=== PATIENT | male | born 1950 | race Caucasian/White ===

== ENCOUNTER 2019-11-14 10:18 | Inpatient (IN) | payer MEDICARE, OTHER ==
[2019-11-14] MEDS ORDERED: SODIUM CHLORIDE 500 ML IV STA (11:16)
[2019-11-14] MEDS ORDERED: PANTOPRAZOLE SODIUM 40 MG VIAL IVPB ONE (11:16)
[2019-11-14] MEDS ORDERED: ONDANSETRON 4 MG/2 ML VIAL IVPUSH ONE (11:16)
[2019-11-14] MEDS ORDERED: chlordiazePOXIDE HCL 25 MG CAPSULE PO ONE (11:21)
[2019-11-14 11:39] LABS: BASO % 0.6 % (0-2.0); HEMATOCRIT 39.2 % (35.4-49); HEMOGLOBIN 13.8 GM/dL (11.7-16.9); LYMPH % 26.6 % (8-40); MCH 36.5 pg (25.7-33.7); MCHC 35.2 g/dl (32.0-35.9); MEAN CELL VOLUME 103.6 fl (80-96); MEAN PLT VOLUME 8.2 fl (7.5-11.1); MONO % 17.1 % (3.8-10.2); NEUT % 52.7 % (42.8-82.8); PLATELET COUNT 77 K/MM3 (134-434); RBC 3.78 M/mm3 (4.00-5.60); RDW 13.9 % (11.9-15.9); WHITE BLOOD COUNT 3.4 K/mm3 (4.0-10.0)
--- NOTE | 2019-11-14 11:40 | PDOC ---
Documentation entered by Andrew Womack SCRIBE, acting as scribe for Sheela Lam MD. Sheela Lam MD: This documentation has been prepared by the Shanta esteves Elijah, SCRIBE, under my direction and personally reviewed by me in its entirety. I confirm that the documentation accurately reflects all work, treatment, procedures, and medical decision making performed by me. History of Present Illness - General Chief Complaint: Diarrhea Stated Complaint: SENT BY DOC History Source: Patient Exam Limitations: No Limitations - History of Present Illness Initial Comments: 11/14/19 11:25 Patient is a 69 year old male with a significant pmh of ETOH abuse, arthritis and Tobacco Use who presents today with Diarrhea over the last month. Patient reports that he has watery stool and it has progressively been worsening. Pt states that he is having 1-2 bowel movements daily described as "clear water with whatever I ate in it." Denies BRBPR or melena. Pt states that has been taking Loperamide with good symptom control -- will have 1 bowel movement every other day when taking the medication. Pt has notably poor PO intake -- states that yesterday all he ate were "a few goldfish" and today he has had no solid intake. 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 Pt sent to the ER today by Dr. Cardona with a note to evaluate for "profuse watery diarrhea. " Patient denies recent travel, blood in stool, weight loss, LOC, SOB and Headaches. Allergies: Nka PCP: Dr. Cardona 11/14/19 11:29 Spoke w/ Dr. Zimmerman, coverage for Dr. Cardona. Per office visit documentation, Pt's roommate/landlord states that he needs to change the pt's bedsheets multiple times a day 2/2 diarrhea and that he is no longer able to care for the patient. Pt appears to be minimizing symptoms. --MD Carole Past History - Past Medical History Allergies/Adverse Reactions: Allergies Allergy/AdvReac Type Severity Reaction Status Date / Time No Known Allergies Allergy Verified 11/14/19 10:31 Home Medications: Ambulatory Orders Unobtainable 11/14/19 COPD: No Other medical history: GALLSTONES - Immunization History Immunization Up to Date: Yes - Psycho Social/Smoking Cessation Hx Smoking History: Current every day smoker Have you smoked in the past 12 months: Yes Number of Cigarettes Smoked Daily: 10 Information on smoking cessation initiated: No 'Breaking Loose' booklet given: 05/16/15 Hx Alcohol Use: Yes Drug/Substance Use Hx: No Review of Systems - Review of Systems Comments:: 11/14/19 11:25 GENERAL/CONSTITUTIONAL: No fever or chills. No weakness. HEAD, EYES, EARS, NOSE AND THROAT: No change in vision. No ear pain or discharge. No sore throat. CARDIOVASCULAR: No chest pain or shortness of breath. RESPIRATORY: No cough, wheezing, or hemoptysis. GASTROINTESTINAL:+Diarrhea No nausea, vomiting or constipation. GENITOURINARY: No dysuria, frequency, or change in urination. MUSCULOSKELETAL: No joint or muscle swelling or pain. No neck or back pain. SKIN: No rash NEUROLOGIC: No headache, vertigo, loss of consciousness, or change in strength/ sensation. ENDOCRINE: No increased thirst. No abnormal weight change. HEMATOLOGIC/LYMPHATIC: No anemia, easy bleeding, or history of blood clots. ALLERGIC/IMMUNOLOGIC: No hives or skin allergy. *Physical Exam - Vital Signs Last Vital Signs Temp Pulse Resp BP Pulse Ox 97.6 F 81 20 140/75 98 11/14/19 10:25 11/14/19 10:25 11/14/19 10:25 11/14/19 10:25 11/14/19 10:25 - Physical Exam 11/14/19 11:25 GENERAL: +Alcohol on Breath. +Resting Essential Tremor. Awake, alert, and fully oriented HEAD: No signs of trauma EYES: PERRLA, EOMI, sclera anicteric, conjunctiva clear ENT: Auricles normal inspection, hearing grossly normal, nares patent, oropharynx clear without exudates. Moist mucosa NECK: Normal ROM, supple, no lymphadenopathy, JVD, or masses LUNGS: +Crackles at the Bases HEART: Regular rate and rhythm, normal S1 and S2, no murmurs, rubs or gallops ABDOMEN: Soft, nontender, normoactive bowel sounds. No guarding, no rebound. No masses EXTREMITIES: + 2+ Pitting Edema. Normal range of motion. No clubbing or cyanosis. No cords, erythema, or tenderness NEUROLOGICAL: Cranial nerves II through XII grossly intact. Normal speech, normal gait SKIN: Warm, Dry, normal turgor, no rashes or lesions noted. ED Treatment Course - LABORATORY CBC & Chemistry Diagram: 11/14/19 11:20 11/14/19 11:20 Medical Decision Making - Medical Decision Making 11/14/19 11:39 69yoM w/ etoh abuse, cig abuse presnets for admission for evaluation of recurrent clear diarrhea and support system unable to care for pt anymore. Pt is minimizing symptoms. - labs - ekg - stool studies - cxr - ivf - admit Dr. Zimmerman/Brendan. Discharge - Discharge Information Problems reviewed: Yes Clinical Impression/Diagnosis: Alcohol dependence - Admission Yes - Follow up/Referral - Patient Discharge Instructions - Post Discharge Activity
[2019-11-14] MEDS ORDERED: ONDANSETRON 4 MG/2 ML VIAL ONE (11:47)
[2019-11-14] MEDS ORDERED: chlordiazePOXIDE HCL 25 MG CAPSULE ONE (11:47)
[2019-11-14] MEDS ORDERED: PANTOPRAZOLE 40 MG TABLET ONE (11:47)
[2019-11-14 11:52] LABS: INR 1.07 (0.83-1.09); PROTHROMBIN TIME (PATIENT) 12.6 SEC (9.7-13.0)
[2019-11-14 12:17] LABS: ALBUMIN 3.5 g/dl (3.4-5.0); ALK PHOS 65 U/L (45-117); ANION GAP 8 MMOL/L (8-16); BILIRUBIN,TOTAL 0.7 mg/dL (0.2-1); CALCIUM 8.6 mg/dL (8.5-10.1); CHLORIDE 97 mmol/L (98-107); CO2 28 mmol/L (21-32); CREATININE 0.6 mg/dL (0.55-1.3); GLUCOSE,RANDOM 85 mg/dL (74-106); LIPASE 46 U/L (73-393); MAGNESIUM 1.8 mg/dL (1.8-2.4); PHOSPHOROUS 3.8 mg/dL (2.5-4.9); SGOT/AST 66 U/L (15-37); SGPT/ALT 29 U/L (13-61); SODIUM 133 mmol/L (136-145); TOT PROT 7.4 g/dl (6.4-8.2)
--- NOTE | 2019-11-14 12:35 | EKG ---
Test Reason : Blood Pressure : / mmHG Vent. Rate : 067 BPM Atrial Rate : 067 BPM P-R Int : 198 ms QRS Dur : 080 ms QT Int : 424 ms P-R-T Axes : 003 011 024 degrees QTc Int : 448 ms POOR DATA QUALITY, INTERPRETATION MAY BE ADVERSELY AFFECTED NORMAL SINUS RHYTHM NORMAL ECG WHEN COMPARED WITH ECG OF 05-OCT-2018 09:34, NO SIGNIFICANT CHANGE WAS FOUND Confirmed by MD TANIA, NALDO ([id number]) on 11/14/2019 12:34:58 PM Referred By: Confirmed By:NALDO MARIN MD
[2019-11-14 12:41] LABS: BLOOD UREA NITROGEN 1.9 mg/dL (7-18)
[2019-11-14] MEDS ORDERED: POTASSIUM CHLORIDE TABS 20 MEQ TABLET.ER (FP) PO ONE (15:00)
[2019-11-14] MEDS ORDERED: chlordiazePOXIDE HCL 10 MG CAPSULE PO PRN (15:01)
[2019-11-14] MEDS: chlordiazePOXIDE HCL 25 MG CAPSULE PO SCH ×2 (15:14→21:20)
[2019-11-14 15:31] VITALS: BMI 21.1
[2019-11-14] MEDS ORDERED: FOLIC ACID INJECTION - 1 MG, THIAMINE HCL 100 MG, MULTIVIT INJECTION ADULT 10 ML in SOD... IVPB ONE (16:00)
[2019-11-14] MEDS: SODIUM CHLORIDE 0.9%/KCL 20 MEQ/1,000 ML INFUS.BAG IV SCH (16:34)
[2019-11-14] MEDS ORDERED: PT OWN MED DRAWER 7, Y5N ONE (20:42)
[2019-11-15] MEDS: SODIUM CHLORIDE 0.9%/KCL 20 MEQ/1,000 ML INFUS.BAG IV SCH ×2 (03:22→15:01)
[2019-11-15] MEDS: LOPERAMIDE HCL 2 MG CAPSULE PO PRN (03:31)
[2019-11-15] MEDS: chlordiazePOXIDE HCL 25 MG CAPSULE PO SCH ×3 (03:59→21:26)
[2019-11-15 07:23] LABS: ALBUMIN 2.7 g/dl (3.4-5.0); BILIRUBIN,TOTAL 1.1 mg/dL (0.2-1); BLOOD UREA NITROGEN 3.8 mg/dL (7-18); CALCIUM 7.5 mg/dL (8.5-10.1); CREATININE 0.6 mg/dL (0.55-1.3); TOT PROT 5.5 g/dl (6.4-8.2)
[2019-11-15 07:26] LABS: BASO % 0.5 % (0-2.0); HEMATOCRIT 33.9 % (35.4-49); HEMOGLOBIN 11.8 GM/dL (11.7-16.9); LYMPH % 19.9 % (8-40); MCH 36.3 pg (25.7-33.7); MCHC 34.7 g/dl (32.0-35.9); MEAN CELL VOLUME 104.7 fl (80-96); MEAN PLT VOLUME 7.7 fl (7.5-11.1); MONO % 15.5 % (3.8-10.2); NEUT % 62.1 % (42.8-82.8); PLATELET COUNT 59 K/MM3 (134-434); RBC 3.24 M/mm3 (4.00-5.60); RDW 13.5 % (11.9-15.9)
--- NOTE | 2019-11-15 08:08 | CON.GI ---
Consult Consult Specialty:: GI Referred by:: Dr Magalie Aiken Reason for Consultation:: Diarrhea - History of Present Illness History of Present Illness: Patient is a 69 y/o male with past medical history of Alcohol Abuse, Arthritis, and Nicotene dependence. Consult was placed for diarrhea. Patient states having non-bloody diarrhea with chills and lower abdominal cramping two times a day for about 2 months. He denies recent travel, antibiotic use, fevers, or night awakening. He says diarrhea is exacerbated after eating and because of this has had poor appetite since diarrhea has started. He says he has lost around 15 lbs in 2 months. Denies nausea, vomiting, rectal bleeding, melena. Patient does have chronic alcohol abuse and drinks 6 beers a day for the past 40 years. - History Source History Provided By: Patient Limitations to Obtaining History: No Limitations - Past Surgical History Past Surgical History: Yes: Hernia Repair - Alcohol/Substance Use Hx Alcohol Use: Yes (40 yrs) Number of Drinks Daily: 6 (beers per day) - Smoking History Smoking history: Current every day smoker Have you smoked in the past 12 months: Yes Aproximately how many cigarettes per day: 10 - Social History History of Recent Travel: No Home Medications - Allergies Allergies/Adverse Reactions: Allergies Allergy/AdvReac Type Severity Reaction Status Date / Time No Known Allergies Allergy Verified 11/14/19 10:31 - Home Medications Home Medications: Ambulatory Orders Unobtainable 11/14/19 Review of Systems - Review of Systems Constitutional: reports: No Symptoms Eyes: reports: No Symptoms HENT: reports: No Symptoms Neck: reports: No Symptoms Cardiovascular: reports: No Symptoms Respiratory: reports: No Symptoms Gastrointestinal: reports: Abdominal Pain, Diarrhea Genitourinary: reports: No Symptoms Breasts: reports: No Symptoms Reported Musculoskeletal: reports: No Symptoms Integumentary: reports: No Symptoms Neurological: reports: No Symptoms Endocrine: reports: No Symptoms Hematology/Lymphatic: reports: No Symptoms Psychiatric: reports: No Symptoms Physical Exam-GI Vital Signs: Vital Signs Temperature 98.0 F 11/15/19 02:00 Pulse Rate 78 11/15/19 02:00 Respiratory Rate 20 11/15/19 02:00 Blood Pressure 125/56 L 11/15/19 02:00 O2 Sat by Pulse Oximetry (%) 96 11/14/19 21:00 Constitutional: Yes: No Distress, Calm, Poor Hygeine Eyes: Yes: Conjunctiva Clear HENT: Yes: Atraumatic Cardiovascular: Yes: Regular Rate and Rhythm Respiratory: Yes: Regular, Diminished Gastrointestinal Inspection: Yes: WNL. No: Ascites, Distention, Hernia, Scars, Other ...Auscultate: Yes: Normoactive Bowel Sounds. No: Hyperactive Bowel Sounds, Hypoactive Bowel Sounds, No Bowel Sounds, Other ...Palpate: Yes: Soft. No: Firm/Rigid, Guarding, Hepatomegaly, Mass, Pulsatile Mass, Splenomegaly, Tenderness, Tenderness, Epigastium, Tenderness, Rebound, Other ...Percussion: Yes: Tympanitic. No: Dullness, Fluid Wave, Other Neurological: Yes: Alert, Oriented Psychiatric: Yes: Alert, Oriented Labs: CBC, BMP 11/15/19 06:35 11/15/19 06:00 INR, PTT INR 1.07 (0.83-1.09) 11/14/19 11:20 Active Medications Generic Name Dose Route Start Last Admin Trade Name Freq PRN Reason Stop Dose Admin Chlordiazepoxide HCl 10 mg 11/17/19 00:00 Librium - PO 11/17/19 23:59 Q12H PRN Signs/symptoms of Withdrawal Chlordiazepoxide HCl 10 mg 11/14/19 15:01 Librium - PO 11/16/19 23:59 Q8H PRN Signs/symptoms of Withdrawal Chlordiazepoxide HCl 25 mg 11/14/19 13:00 11/15/19 03:59 Librium - PO 11/15/19 21:01 25 mg Q8H GERALDO Administration Chlordiazepoxide HCl 15 mg 11/16/19 05:00 Librium - PO 11/16/19 21:01 Q8H GERALDO Chlordiazepoxide HCl 10 mg 11/17/19 05:00 Librium - PO 11/17/19 21:01 Q8H GERALDO Chlordiazepoxide HCl 10 mg 11/18/19 05:00 Librium - PO 11/18/19 05:01 ONCE ONE Potassium Chloride/Sodium Chloride 20 meq in 1,000 mls @ 100 mls/hr 11/14/19 15:00 11/15/19 03:22 Ns+20 Meq Kcl - IV 100 mls/hr ASDIR GERALDO Administration Loperamide HCl 2 mg 11/14/19 16:04 11/15/19 03:31 Imodium - PO 2 mg Q8H PRN Administration DIARRHEA Thiamine HCl 200 mg 11/15/19 10:00 Vitamin B1 Injection - IVPB DAILY [facility] Problem List - Problems (1) Diarrhea Code(s): R19.7 - DIARRHEA, UNSPECIFIED
[2019-11-15] MEDS: THIAMINE HCL 200 MG/2 ML VIAL IVPB SCH (10:27)
[2019-11-15] MEDS ORDERED: POTASSIUM CHLORIDE TABS 20 MEQ TABLET.ER (FP) PO ONE (11:05)
[2019-11-15] MEDS ORDERED: LORazepam 2 MG/ML SDV VIAL IVPUSH PRN (11:45)
--- NOTE | 2019-11-15 11:52 | HP ---
Admitting History and Physical - Primary Care Physician PCP: Juliann Cardona - Admission Chief Complaint: chronic diarrhea History of Present Illness: ER Notes History of Present Illness - General Chief Complaint: Diarrhea Stated Complaint: SENT BY DOC History Source: Patient Exam Limitations: No Limitations - History of Present Illness Initial Comments: 11/14/19 11:25 Patient is a 69 year old male with a significant pmh of ETOH abuse, arthritis and Tobacco Use who presents today with Diarrhea over the last month. Patient reports that he has watery stool and it has progressively been worsening. Pt states that he is having 1-2 bowel movements daily described as "clear water with whatever I ate in it." Denies BRBPR or melena. Pt states that has been taking Loperamide with good symptom control -- will have 1 bowel movement every other day when taking the medication. Pt has notably poor PO intake -- states that yesterday all he ate were "a few goldfish" and today he has had no solid intake. 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 Pt sent to the ER today by Dr. Cardona with a note to evaluate for "profuse watery diarrhea." Patient denies recent travel, blood in stool, weight loss, LOC, SOB and Headaches. Allergies: Nka PCP: Dr. Cardona 11/14/19 11:29 Spoke w/ Dr. Zimmerman, coverage for Dr. Cardona. Per office visit documentation, Pt's roommate/landlord states that he needs to change the pt's bedsheets multiple times a day 2/2 diarrhea and that he is no longer able to care for the patient. Pt appears to be minimizing symptoms. --MD Carole Pt examined on the floors He lives with a friend--- lives on social security-- has been a chronic alcoholic - 6 pack beer/day >20 years and a chronic smoker-- 1/2 PPD Poor po intake per friend , drinks only alcohol has been having diarrhea for about 4 months--about 1 -2 loose stools daily - he claims he "tries " to eat 2 meals a day Has occasional abd pain no chills has lost 15 lbs in past 3 months Pt is notably weak with tremors was previously in [facility] for detox History Source: Patient, Friend, Transfer Record Limitations to Obtaining History: No Limitations - Past Medical History Pulmonary: Yes: Other (chronic smoker) Additional Past Medical History: chronic alcoholic - Past Surgical History Past Surgical History: Yes: Hernia Repair - Smoking History Smoking history: Current every day smoker Have you smoked in the past 12 months: Yes Aproximately how many cigarettes per day: 10 - Alcohol/Substance Use Hx Alcohol Use: Yes (40 yrs) Number of Drinks Daily: 6 (beers per day) - Social History History of Recent Travel: No Home Medications - Allergies Allergies/Adverse Reactions: Allergies Allergy/AdvReac Type Severity Reaction Status Date / Time No Known Allergies Allergy Verified 11/14/19 10:31 - Home Medications Home Medications: Ambulatory Orders Unobtainable 11/14/19 Review of Systems - Review of Systems Constitutional: reports: Loss of Appetite, Weakness. denies: Chills Physical Examination Vital Signs: Vital Signs Temperature 98 F 11/15/19 09:26 Pulse Rate 86 11/15/19 09:26 Respiratory Rate 18 11/15/19 09:26 Blood Pressure 143/84 11/15/19 09:26 O2 Sat by Pulse Oximetry (%) 96 11/15/19 09:00 Constitutional: Yes: No Distress, Calm Cardiovascular: Yes: Regular Rate and Rhythm Respiratory: Yes: Diminished Gastrointestinal: Yes: Normal Bowel Sounds, Soft. No: Tenderness Edema: No Neurological: Yes: Alert, Oriented, Tremors Labs: CBC, BMP 11/15/19 06:35 11/15/19 06:00 Imaging - Results EKG: Image Reviewed (NSR) Problem List - Problems (1) Pancytopenia Code(s): D61.818 - OTHER PANCYTOPENIA (2) Alcohol dependence Code(s): F10.20 - ALCOHOL DEPENDENCE, UNCOMPLICATED (3) Diarrhea Code(s): R19.7 - DIARRHEA, UNSPECIFIED Assessment/Plan PLAN diarrhea likely nutritional deficiency due to chronic alcoholism Replace lytes started on Librium Ativan as needed on Thiamine, folic acid , [facility] GI eval stool studies sent Detox eval Monitor CBC-- he is pancytopenic due to alcoholism check sono abdomen SCD for dvt prophylaxis-- can not use Heparin /lovenox due to thrombocytopenia
[2019-11-15] MEDS: FOLIC ACID 1 MG TABLET (FP) PO SCH (13:09)
[2019-11-15] MEDS: MULTIVIT-MINERALS ORAL LIQUID PO SCH (13:09)
[2019-11-15] MEDS: NICOTINE 14 MG/24 HOURS TOPICAL PATCH TD SCH (13:09)
[2019-11-15] MEDS: FAMOTIDINE 10 MG TABLET PO SCH (21:28)
[2019-11-16] MEDS: SODIUM CHLORIDE 0.9%/KCL 20 MEQ/1,000 ML INFUS.BAG IV SCH ×3 (00:16→15:22)
[2019-11-16] MEDS: chlordiazePOXIDE 5 MG CAPSULE PO SCH ×3 (05:21→21:08)
[2019-11-16 06:29] LABS: BASO % 0.5 % (0-2.0); EOS % 2.2 % (0-4.5); HEMATOCRIT 32.5 % (35.4-49); HEMOGLOBIN 11.6 GM/dL (11.7-16.9); LYMPH % 21.6 % (8-40); MCH 36.8 pg (25.7-33.7); MCHC 35.8 g/dl (32.0-35.9); MEAN CELL VOLUME 102.8 fl (80-96); MEAN PLT VOLUME 7.6 fl (7.5-11.1); MONO % 17.5 % (3.8-10.2); NEUT % 58.2 % (42.8-82.8); PLATELET COUNT 61 K/MM3 (134-434); RBC 3.16 M/mm3 (4.00-5.60); RDW 13.1 % (11.9-15.9); WHITE BLOOD COUNT 3.1 K/mm3 (4.0-10.0)
[2019-11-16 07:33] LABS: ALBUMIN 2.7 g/dl (3.4-5.0); CALCIUM 7.5 mg/dL (8.5-10.1); CREATININE 0.5 mg/dL (0.55-1.3); MAGNESIUM 1.3 mg/dL (1.8-2.4); POTASSIUM 3.4 mmol/L (3.5-5.1); TOT PROT 5.7 g/dl (6.4-8.2)
[2019-11-16] MEDS ORDERED: PT OWN MED DRAWER 7, Y5N ONE (09:57)
[2019-11-16] MEDS: NICOTINE 14 MG/24 HOURS TOPICAL PATCH TD SCH (09:59)
[2019-11-16] MEDS: THIAMINE HCL 200 MG/2 ML VIAL IVPB SCH (09:59)
[2019-11-16] MEDS: FAMOTIDINE 10 MG TABLET PO SCH ×2 (09:59→21:08)
[2019-11-16] MEDS: FOLIC ACID 1 MG TABLET (FP) PO SCH (09:59)
[2019-11-16] MEDS: MULTIVIT-MINERALS ORAL LIQUID PO SCH (10:00)
--- NOTE | 2019-11-16 11:48 | PN ---
Progress Note (short form) - Note Progress Note: Pt seen/ examined chart reviewed known to me from office- and send by me fells better diarrhea better Vital Signs Temp 98.2 F 11/16/19 10:00 Pulse 78 11/16/19 10:00 Resp 20 11/16/19 10:00 BP 127/80 11/16/19 10:00 Pulse Ox 98 11/15/19 21:00 Intake & Output 11/15/19 11/15/19 11/16/19 11:59 23:59 11:59 Intake Total 600 1050 Balance 600 1050 Weight 139 lb Intake: IV 600 1000 sl #2 600 1000 IVPB 50 Other: Voiding Method Toilet Toilet Toilet Bowel Movement Yes Yes # Bowel Movements 2 1 Height 5 ft 8 in Body Mass Index (BMI) 21.1 Active Medications Chlordiazepoxide HCl (Librium -) 10 mg PO Q12H PRN PRN Reason: Signs/symptoms of Withdrawal Stop: 11/17/19 23:59 Chlordiazepoxide HCl (Librium -) 10 mg PO Q8H PRN PRN Reason: Signs/symptoms of Withdrawal Stop: 11/16/19 23:59 Chlordiazepoxide HCl (Librium -) 15 mg PO Q8H [facility] Stop: 11/16/19 21:01 Last Admin: 11/16/19 05:21 Dose: 15 mg Documented by: Chlordiazepoxide HCl (Librium -) 10 mg PO Q8H [facility] Stop: 11/17/19 21:01 Chlordiazepoxide HCl (Librium -) 10 mg PO ONCE ONE Stop: 11/18/19 05:01 Famotidine (Acid Online Advertising Director) 10 mg PO BID [facility] Last Admin: 11/16/19 09:59 Dose: 10 mg Documented by: Folic Acid (Folic Acid -) 1 mg PO DAILY [facility] Last Admin: 11/16/19 09:59 Dose: 1 mg Documented by: Potassium Chloride/Sodium Chloride (Ns+20 Meq Kcl -) 20 meq in 1,000 mls @ 100 mls/hr IV ASDIR [facility] Last Admin: 11/16/19 00:16 Dose: 100 mls/hr Documented by: Loperamide HCl (Imodium -) 2 mg PO Q8H PRN PRN Reason: DIARRHEA Last Admin: 11/15/19 03:31 Dose: 2 mg Documented by: Lorazepam (Ativan Injection -) 1 mg IVPUSH Q6H PRN PRN Reason: WITHDRAWAL(CONT SUBST) Multivitamins/Minerals (Certavite-Antioxidant Liquid) 15 ml PO DAILY [facility] Last Admin: 11/16/19 10:00 Dose: 15 ml Documented by: Nicotine (Nicoderm Patch -) 14 mg TD DAILY [facility] Last Admin: 11/16/19 09:59 Dose: 14 mg Documented by: Thiamine HCl (Vitamin B1 Injection -) 200 mg IVPB DAILY [facility] Last Admin: 11/16/19 09:59 Dose: 200 mg Documented by: CBC, BMP 11/16/19 06:17 11/16/19 06:17 u/s - abdomen- Pending report- just done cxr- ordered Physical Examination Constitutional: Yes: No Distress, Calm and comfortable Cardiovascular: Yes: Regular Rate and Rhythm Respiratory: Yes: Diminished Gastrointestinal: Yes: Normal Bowel Sounds, Soft. No: Tenderness Edema: No Neurological: Yes: Alert, Oriented, Tremors Imaging - Results EKG: Image Reviewed (NSR) Problem List - Problems (1) Pancytopenia Code(s): D61.818 - OTHER PANCYTOPENIA (2) Alcohol dependence Code(s): F10.20 - ALCOHOL DEPENDENCE, UNCOMPLICATED (3) Diarrhea Code(s): R19.7 - DIARRHEA, UNSPECIFIED Assessment/Plan PLAN diarrhea likely nutritional deficiency due to chronic alcoholism Replace lytes started on Librium Ativan as needed on Thiamine, folic acid , [facility] GI eval noted stool studies Detox eval Monitor CBC-- he is pancytopenic due to alcoholism check sono abdomen SCD for dvt prophylaxis-- can not use Heparin /lovenox due to thrombocytopenia daily - oob - chair monitor lytes check B12 level Counselling about alcohol/ smoking cxr will follow
[2019-11-16] MEDS: LOPERAMIDE HCL 2 MG CAPSULE PO PRN (22:56)
[2019-11-17] MEDS ORDERED: chlordiazePOXIDE HCL 10 MG CAPSULE PO PRN
[2019-11-17] MEDS: chlordiazePOXIDE HCL 10 MG CAPSULE PO SCH ×3 (05:53→21:40)
[2019-11-17 06:36] LABS: BASO % 0.9 % (0-2.0); EOS % 2.6 % (0-4.5); HEMATOCRIT 34.3 % (35.4-49); HEMOGLOBIN 12.2 GM/dL (11.7-16.9); LYMPH % 20.7 % (8-40); MCH 36.8 pg (25.7-33.7); MCHC 35.5 g/dl (32.0-35.9); MEAN CELL VOLUME 103.5 fl (80-96); MEAN PLT VOLUME 8.3 fl (7.5-11.1); MONO % 16.8 % (3.8-10.2); PLATELET COUNT 52 K/MM3 (134-434); RBC 3.31 M/mm3 (4.00-5.60); RDW 13.1 % (11.9-15.9); WHITE BLOOD COUNT 4.1 K/mm3 (4.0-10.0)
[2019-11-17 07:36] LABS: ALBUMIN 2.8 g/dl (3.4-5.0); BILIRUBIN,TOTAL 1.2 mg/dL (0.2-1); CALCIUM 7.6 mg/dL (8.5-10.1); CREATININE 0.6 mg/dL (0.55-1.3); POTASSIUM 3.7 mmol/L (3.5-5.1); TOT PROT 6.2 g/dl (6.4-8.2)
[2019-11-17 08:15] LABS: BLOOD UREA NITROGEN 2.7 mg/dL (7-18)
[2019-11-17] MEDS: FOLIC ACID 1 MG TABLET (FP) PO SCH (09:05)
[2019-11-17] MEDS: NICOTINE 14 MG/24 HOURS TOPICAL PATCH TD SCH (09:05)
[2019-11-17] MEDS: MULTIVIT-MINERALS ORAL LIQUID PO SCH (09:05)
[2019-11-17] MEDS: THIAMINE HCL 200 MG/2 ML VIAL IVPB SCH (09:06)
[2019-11-17] MEDS: FAMOTIDINE 10 MG TABLET PO SCH ×2 (09:06→21:40)
--- NOTE | 2019-11-17 11:53 | PN ---
Progress Note (short form) - Note Progress Note: No loose bm today-- had one last night unsteady gait per RN Vital Signs - 24 hr 11/16/19 11/16/19 11/16/19 13:56 18:15 21:00 Temperature 97.7 F 97.6 F Pulse Rate 77 81 Respiratory 20 20 Rate Blood Pressure 130/59 L 126/66 O2 Sat by Pulse 98 Oximetry (%) 11/16/19 11/17/19 11/17/19 22:00 06:00 09:00 Temperature 98.0 F 97.7 F Pulse Rate 80 70 Respiratory 20 20 17 Rate Blood Pressure 127/78 124/75 O2 Sat by Pulse Oximetry (%) Current Medications Generic Name Dose Route Start Last Admin Trade Name Freq PRN Reason Stop Dose Admin Chlordiazepoxide HCl 10 mg 11/17/19 00:00 Librium - PO 11/17/19 23:59 Q12H PRN Signs/symptoms of Withdrawal Chlordiazepoxide HCl 10 mg 11/17/19 05:00 11/17/19 05:53 Librium - PO 11/17/19 21:01 10 mg Q8H GERALDO Administration Chlordiazepoxide HCl 10 mg 11/18/19 05:00 Librium - PO 11/18/19 05:01 ONCE ONE Famotidine 10 mg 11/15/19 22:00 11/17/19 09:06 Acid Sales Promotion Representative PO 10 mg BID GERALDO Administration Folic Acid 1 mg 11/15/19 11:45 11/17/19 09:05 Folic Acid - PO 1 mg DAILY GERALDO Administration Potassium Chloride/Sodium Chloride 20 meq in 1,000 mls @ 100 mls/hr 11/14/19 15:00 11/16/19 15:22 Ns+20 Meq Kcl - IV Not Given ASDIR GERALDO Loperamide HCl 2 mg 11/14/19 16:04 11/16/19 22:56 Imodium - PO 2 mg Q8H PRN Administration DIARRHEA Lorazepam 1 mg 11/15/19 11:45 Ativan Injection - IVPUSH Q6H PRN WITHDRAWAL(CONT SUBST) Multivitamins/Minerals 15 ml 11/15/19 11:45 11/17/19 09:05 Certavite-Antioxidant Liquid PO 15 ml DAILY GERALDO Administration Nicotine 14 mg 11/15/19 12:00 11/17/19 09:05 Nicoderm Patch - TD 14 mg DAILY GERALDO Administration Thiamine HCl 200 mg 11/15/19 10:00 11/17/19 09:06 Vitamin B1 Injection - IVPB 200 mg DAILY GERALDO Administration Laboratory Results - last 24 hr 11/14/19 11/17/19 11/17/19 21:50 06:15 06:15 WBC 4.1 RBC 3.31 L Hgb 12.2 Hct 34.3 L MCV 103.5 H MCH 36.8 H MCHC 35.5 RDW 13.1 Plt Count 52 L MPV 8.3 Absolute Neuts (auto) 2.4 Neutrophils % 59.0 Lymphocytes % 20.7 Monocytes % 16.8 H Eosinophils % 2.6 Basophils % 0.9 Nucleated RBC % 0 Sodium 139 Potassium 3.7 Chloride 104 Carbon Dioxide 27 Anion Gap 7 L BUN 2.7 L* Creatinine 0.6 Est GFR (CKD-EPI)AfAm 118.90 Est GFR (CKD-EPI)NonAf 102.59 Random Glucose 89 Calcium 7.6 L Total Bilirubin 1.2 H AST 55 H ALT 25 Alkaline Phosphatase 67 Total Protein 6.2 L Albumin 2.8 L Vitamin B12 758 Stool O & P Wet [place] & P Permanent Slide Final report S1 S2 RRR Lungs decreased Abd-soft, nT No edema tremors+ PLAN Complete librium protocol fall precautions IV fluids Liberalize diet add Prosource stool studies negative Problem List - Problems (1) Pancytopenia Code(s): D61.818 - OTHER PANCYTOPENIA (2) Alcohol dependence Code(s): F10.20 - ALCOHOL DEPENDENCE, UNCOMPLICATED (3) Diarrhea Code(s): R19.7 - DIARRHEA, UNSPECIFIED
[2019-11-17] MEDS: AMINO ACIDS/PROTEIN HYDROLYS 30 ML LIQUID.PKT PO SCH (18:02)
[2019-11-17] MEDS: SODIUM CHLORIDE 0.9%/KCL 20 MEQ/1,000 ML INFUS.BAG IV SCH (18:02)
--- NOTE | 2019-11-17 20:39 | CONSULT ---
Consult Detox [facility] Reason for Current Admission/Consult: for alcohol dependence Referred by:: Magalie Zimmerman MD - History History of Present Illness: this 69 years old male with history of diarrhea admitted 0n 11/14/2019,also has pancytopenia history of alcohol dependence drink 6 of 16 ozs of beer daily started at age of 12,last drink 11/14/2019 denied seizure had syncope related to drinking smoke 1 pack/day living with friend history of right inguinal hernia repair in 1955 - Alcohol/Substance Use Hx Alcohol Use: Yes (40 yrs) - Past Medical History Pulmonary: Yes: Other (chronic smoker) - Past Surgical History Past Surgical History: Yes: Hernia Repair CIWA Score - CIWA Score Nausea/Vomitin Muscle Tremors: 2 Anxiety: 2 Agitation: 2 Paroxysmal Sweats: No Perspiration Orientation: 0-Oriented Tacttile Disturbances: 1-Very Mild Itch/Numbness Auditory Disturbances: 0-None Visual Disturbances: 0-None Headache: 2-Mild CIWA-Ar Total Score: 11 Assessment Plan - Diagnosis (1) Alcohol dependence with uncomplicated withdrawal Status: Acute (2) Diarrhea Status: Acute (3) Hemorrhoid Status: Acute (4) Pancytopenia Status: Acute - Plan Plan: plan to continue alcohol detox,patient has been on librium regimen taper, patient may be benefit for inpatient rehab or out patient program after detox - Medication Detox Regimen/Protocol: Librium
[2019-11-17] MEDS: LOPERAMIDE HCL 2 MG CAPSULE PO PRN (21:40)
[2019-11-18] MEDS: SODIUM CHLORIDE 0.9%/KCL 20 MEQ/1,000 ML INFUS.BAG IV SCH ×2 (01:30→15:29)
[2019-11-18] MEDS ORDERED: chlordiazePOXIDE HCL 10 MG CAPSULE PO ONE (05:00)
[2019-11-18 06:46] LABS: HEMATOCRIT 35.8 % (35.4-49); HEMOGLOBIN 12.7 GM/dL (11.7-16.9); MCH 37.1 pg (25.7-33.7); MCHC 35.6 g/dl (32.0-35.9); MEAN CELL VOLUME 104.2 fl (80-96); MEAN PLT VOLUME 8.7 fl (7.5-11.1); PLATELET COUNT 86 K/MM3 (134-434); RBC 3.43 M/mm3 (4.00-5.60); RDW 13.4 % (11.9-15.9); WHITE BLOOD COUNT 3.5 K/mm3 (4.0-10.0)
[2019-11-18 06:56] LABS: BLOOD UREA NITROGEN 7.6 mg/dL (7-18); CREATININE 0.7 mg/dL (0.55-1.3); POTASSIUM 3.7 mmol/L (3.5-5.1)
[2019-11-18] MEDS: AMINO ACIDS/PROTEIN HYDROLYS 30 ML LIQUID.PKT PO SCH ×2 (09:00→17:02)
[2019-11-18] MEDS: FAMOTIDINE 10 MG TABLET PO SCH ×2 (09:01→22:17)
[2019-11-18] MEDS: THIAMINE HCL 200 MG/2 ML VIAL IVPB SCH (09:01)
[2019-11-18] MEDS: FOLIC ACID 1 MG TABLET (FP) PO SCH (09:01)
[2019-11-18] MEDS: NICOTINE 14 MG/24 HOURS TOPICAL PATCH TD SCH (09:01)
[2019-11-18] MEDS: MULTIVIT-MINERALS ORAL LIQUID PO SCH (09:56)
--- NOTE | 2019-11-18 10:31 | PN ---
Progress Note (short form) - Note Progress Note: No loose bm today unsteady gait per RN Vital Signs - 24 hr 11/17/19 11/17/19 11/17/19 18:00 21:00 22:00 Temperature 98.3 F 97.8 F Pulse Rate 72 73 Respiratory 20 18 18 Rate Blood Pressure 136/79 148/87 O2 Sat by Pulse 97 Oximetry (%) 11/18/19 11/18/19 11/18/19 01:17 06:07 09:00 Temperature 98.1 F 97.5 F L Pulse Rate 72 72 Respiratory 20 20 20 Rate Blood Pressure 138/78 140/76 O2 Sat by Pulse 97 Oximetry (%) 11/18/19 13:18 Temperature 97.8 F Pulse Rate 79 Respiratory 20 Rate Blood Pressure 126/63 O2 Sat by Pulse Oximetry (%) Current Medications Generic Name Dose Route Start Last Admin Trade Name Freq PRN Reason Stop Dose Admin Amino Acids 30 ml 11/17/19 17:30 11/18/19 09:00 Prosource No Carb Liquid Pkt PO 30 ml BID@0800,1730 GERALDO Administration Famotidine 10 mg 11/15/19 22:00 11/18/19 09:01 Acid Ambulatory Service Representative PO 10 mg BID GERALDO Administration Folic Acid 1 mg 11/15/19 11:45 11/18/19 09:01 Folic Acid - PO 1 mg DAILY GERALDO Administration Potassium Chloride/Sodium Chloride 20 meq in 1,000 mls @ 100 mls/hr 11/14/19 15:00 11/18/19 01:30 Ns+20 Meq Kcl - IV 100 mls/hr ASDIR GERALDO Administration Loperamide HCl 2 mg 11/14/19 16:04 11/17/19 21:40 Imodium - PO 2 mg Q8H PRN Administration DIARRHEA Multivitamins/Minerals 15 ml 11/15/19 11:45 11/18/19 09:56 Certavite-Antioxidant Liquid PO 15 ml DAILY GERALDO Administration Nicotine 14 mg 11/15/19 12:00 11/18/19 09:01 Nicoderm Patch - TD 14 mg DAILY GERALDO Administration Thiamine HCl 200 mg 11/15/19 10:00 11/18/19 09:01 Vitamin B1 Injection - IVPB 200 mg DAILY GERALDO Administration Laboratory Results - last 24 hr 11/18/19 11/18/19 06:05 06:05 WBC 3.5 L RBC 3.43 L Hgb 12.7 Hct 35.8 MCV 104.2 H MCH 37.1 H MCHC 35.6 RDW 13.4 Plt Count 86 L D MPV 8.7 Sodium 138 Potassium 3.7 Chloride 104 Carbon Dioxide 29 Anion Gap 5 L BUN 7.6 Creatinine 0.7 Est GFR (CKD-EPI)AfAm 111.60 Est GFR (CKD-EPI)NonAf 96.29 Random Glucose 96 Calcium 8.0 L S1 S2 RRR Lungs decreased Abd-soft, nT No edema tremors+ PLAN Completed librium protocol fall precautions IV fluids Liberalize diet add Prosource stool studies negative will need STR vs inpatient detox Problem List - Problems (1) Pancytopenia Code(s): D61.818 - OTHER PANCYTOPENIA (2) Alcohol dependence Code(s): F10.20 - ALCOHOL DEPENDENCE, UNCOMPLICATED (3) Diarrhea Code(s): R19.7 - DIARRHEA, UNSPECIFIED
[2019-11-19] MEDS: SODIUM CHLORIDE 0.9%/KCL 20 MEQ/1,000 ML INFUS.BAG IV SCH ×2 (01:07→10:56)
[2019-11-19] MEDS ORDERED: PT OWN MED DRAWER 7, Y5N ONE (09:06)
[2019-11-19] MEDS: FOLIC ACID 1 MG TABLET (FP) PO SCH (09:17)
[2019-11-19] MEDS: FAMOTIDINE 10 MG TABLET PO SCH (09:17)
[2019-11-19] MEDS: AMINO ACIDS/PROTEIN HYDROLYS 30 ML LIQUID.PKT PO SCH (09:17)
[2019-11-19] MEDS: NICOTINE 14 MG/24 HOURS TOPICAL PATCH TD SCH (09:17)
[2019-11-19] MEDS: THIAMINE HCL 200 MG/2 ML VIAL IVPB SCH (09:17)
[2019-11-19] MEDS: MULTIVIT-MINERALS ORAL LIQUID PO SCH (09:17)
[2019-11-19 11:43] VITALS: BP 140/76; PULSE 63; TEMP 98
--- NOTE | 2019-11-19 12:56 | DS ---
Physical Examination Vital Signs: Vital Signs Temperature 98.0 F 11/19/19 08:30 Pulse Rate 63 11/19/19 08:30 Respiratory Rate 18 11/19/19 08:30 Blood Pressure 140/76 11/19/19 08:30 O2 Sat by Pulse Oximetry (%) 98 11/19/19 08:30 Findings/Remarks: feels well no complains diarrhea resolved wants to go home. refuses to go to str/ In patient rehab Constitutional: Yes: No Distress, Calm Eyes: Yes: Conjunctiva Clear Neck: Yes: Supple Cardiovascular: Yes: Regular Rate and Rhythm Respiratory: Yes: CTA Bilaterally Gastrointestinal: Yes: Soft Edema: No Labs: CBC, BMP 11/18/19 06:05 11/18/19 06:05 Discharge Summary Problems reviewed: Yes Reason For Visit: ALCOHOL DEPENDENCE,DIARRHEA Current Active Problems Alcohol dependence (Acute) Alcohol dependence with uncomplicated withdrawal (Acute) Diarrhea (Acute) Pancytopenia (Acute) Hospital Course: admitted due to diarrhea/ electrolyte imbalance due to alcohol Treated appropriately with Bananabag etc better counselled refuses rehab u/s -- noted -- has h/o plup-- Was advised surgery -- pt did not do - advised again to --out pt. d/w rn f/u in office meds reconcilled-- ordered as needed. Condition: Stable - Instructions Referrals: Juliann Cardona MD [Primary Care Provider] - - Home Medications Comprehensive Discharge Medication List: Ambulatory Orders Famotidine 20 mg PO DAILY #30 tablet 11/19/19 Folic Acid - 1 mg PO DAILY tablet 11/19/19
== END 2019-11-19 14:42 | disposition home or self-care (01) | DRG 897 ==
LOC: JER 10:18 → JERBED 11:40 → J7W 13:53
PROVIDERS: ADMIT Internal Medicine; ATTEND Internal Medicine
PROC: HZ2ZZZZ Detoxification Services for Substance Abuse Treatment (ICD-10-PCS; principal; 2019-11-14)
DX: F10.239 Alcohol dependence with withdrawal, unspecified (principal); D61.818 Other pancytopenia; R19.7 Diarrhea, unspecified; F17.210 Nicotine dependence, cigarettes, uncomplicated
CPT/HCPCS: 36415; 71045-TC-FY; 76705-TC; 80048; 80053; 82272; 82550; 82607; 83605; 83690; 83735; 84100; 84484; 85025; 85027; 85610; 85730; 87045; 87046; 87177; 87205; 87209; 87324; 87389; 87449; 93005; 93010; 97116-GP; 97161-GP; 99285-25; J7030

== ENCOUNTER 2020-12-30 16:22 | Emergency (ER) | payer MEDICARE, OTHER ==
[2020-12-30 17:06] VITALS: TEMP 97.9; BMI 22.0
[2020-12-30] MEDS ORDERED: SODIUM CHLORIDE 1,000 ML IV STA ×2 (19:21→21:16)
[2020-12-30 19:34] LABS: BASO % 0.8 % (0-2.0); EOS % 3.1 % (0-4.5); HEMATOCRIT 41.1 % (35.4-49); LYMPH % 29.9 % (8-40); MCH 36.4 pg (25.7-33.7); MEAN CELL VOLUME 107.2 fl (80-96); MONO % 10.8 % (3.8-10.2); NEUT % 55.4 % (42.8-82.8); RBC 3.83 M/mm3 (4.00-5.60); RDW 18.2 % (11.9-15.9); WHITE BLOOD COUNT 3.3 K/mm3 (4.0-10.0)
[2020-12-30 19:53] LABS: CHLORIDE 85 mmol/L (98-107)
[2020-12-30 19:54] LABS: BLOOD UREA NITROGEN 4.6 mg/dL (7-18)
[2020-12-30 19:55] LABS: CALCIUM 7.7 mg/dL (8.5-10.1); CO2 26 mmol/L (21-32); GLUCOSE,RANDOM 53 mg/dL (74-106)
[2020-12-30 19:56] LABS: ALBUMIN 3.5 g/dl (3.4-5.0)
[2020-12-30 19:59] LABS: EPI CELLS 8 /uL (0-25.1); HYALINE CASTS 0 /uL (0-3.1); PH,URINE 5.5 (5.0-8.0); URINE APPEARANCE CLEAR; URINE BACTERIA 649 /uL (0-1359); URINE BILIRUBIN NEGATIVE (NEGATIVE); URINE COLOR YELLOW; URINE GLUCOSE (UA) NEGATIVE (NEGATIVE); URINE KETONE 1+ (NEGATIVE); URINE LEUK ESTERASE TRACE (NEGATIVE); URINE NITRITE NEGATIVE (NEGATIVE); URINE PROTEIN NEGATIVE (NEGATIVE); URINE RBC 5 /uL (0-23.9); URINE WBC 27 /uL (0-25.8)
[2020-12-30 19:59] LABS: CREATININE 0.6 mg/dL (0.55-1.3)
[2020-12-30] MEDS ORDERED: DEXTROSE 50%-WATER - 25 GM/50 ML VIAL IVPUSH ONE (20:24)
[2020-12-30 20:26] LABS: ANION GAP -9 MMOL/L (8-16); SODIUM 101 mmol/L (136-145)
[2020-12-30] MEDS ORDERED: DEXTROSE 50%-WATER 25 GM/50 ML DISP.SYRIN ONE (20:26)
[2020-12-30 21:24] LABS: CHLORIDE 94 mmol/L (98-107); SODIUM 129 mmol/L (136-145)
[2020-12-30 21:26] LABS: ALBUMIN 3.7 g/dl (3.4-5.0); ANION GAP 13 MMOL/L (8-16); BLOOD UREA NITROGEN 4.3 mg/dL (7-18); CALCIUM 8.2 mg/dL (8.5-10.1); CO2 22 mmol/L (21-32)
[2020-12-30 21:27] LABS: GLUCOSE,RANDOM 195 mg/dL (74-106)
[2020-12-30 21:29] LABS: SGOT/AST 53 U/L (15-37); SGPT/ALT 26 U/L (13-61)
[2020-12-30 21:30] LABS: CREATININE 0.6 mg/dL (0.55-1.3)
[2020-12-30 21:31] LABS: BILIRUBIN,TOTAL 0.9 mg/dL (0.2-1)
[2020-12-30 21:32] LABS: ALK PHOS 64 U/L (45-117)
[2020-12-30 21:42] LABS: MACROCYTOSIS 1+; MEAN PLT VOLUME 7.9 fl (7.5-11.1); PLATELET COUNT 91 K/MM3 (134-434)
[2020-12-30 21:43] LABS: PLATELET ESTIMATE SLT DECREASE
[2020-12-30 21:59] LABS: TOT PROT 7.3 g/dl (6.4-8.2)
[2020-12-30 22:34] VITALS: BP 122/76; PULSE 74
== END 2020-12-30 22:34 | disposition home or self-care (01) ==
LOC: JER 16:22
PROC: 3E033NZ Introduction of Analgesics, Hypnotics, Sedatives into Peripheral Vein, Percutaneous Approach (ICD-10-PCS; principal; 2020-12-30)
PROC: 3E0337Z Introduction of Electrolytic and Water Balance Substance into Peripheral Vein, Percutaneous Approach (ICD-10-PCS; 2020-12-30)
DX: E87.1 Hypo-osmolality and hyponatremia (principal); F10.29 Alcohol dependence with unspecified alcohol-induced disorder
CPT/HCPCS: 36415; 71045-TC-FY; 80053; 81003; 82550; 82553; 83690; 84484; 85025; 93005; 93010; 96361; 96374; 99285-25

== ENCOUNTER 2023-05-23 16:56 | Observation (INO) | payer MEDICARE, OTHER ==
[2023-05-23 17:16] VITALS: BMI 22.0
[2023-05-23 18:32] LABS: BASO % 0.5 % (0-2.0); EOS % 2.2 % (0-4.5); HEMATOCRIT 19.6 % (35.4-49); LYMPH % 15.2 % (8-40); MCH 36.2 pg (25.7-33.7); MCHC 34.9 g/dl (32.0-35.9); MEAN CELL VOLUME 103.6 fl (80-96); MEAN PLT VOLUME 7.7 fl (7.5-11.1); MONO % 11.3 % (3.8-10.2); NEUT % 70.8 % (42.8-82.8); PLATELET COUNT 215 10^3/uL (134-434); RBC 1.89 M/mm3 (4.00-5.60); RDW 14.5 % (11.9-15.9); WHITE BLOOD COUNT 6.9 K/mm3 (4.0-10.0)
[2023-05-23 18:40] LABS: HEMOGLOBIN 6.9 GM/dL (11.7-16.9); INR 1.09 (0.83-1.09); PROTHROMBIN TIME (PATIENT) 12.6 SEC (9.7-13.0)
[2023-05-23 18:43] LABS: ACTIVATED PTT 25.2 SECONDS (25.2-36.5)
[2023-05-23 18:58] LABS: POTASSIUM 4.2 mmol/L (3.5-5.1)
[2023-05-23 19:00] LABS: ALBUMIN 3.5 g/dl (3.4-5.0); BLOOD UREA NITROGEN 22.9 mg/dL (7-18); CALCIUM 8.7 mg/dL (8.5-10.1)
[2023-05-23 19:03] LABS: CREATININE 0.8 mg/dL (0.55-1.3)
[2023-05-23 19:05] LABS: BILIRUBIN,TOTAL 0.2 mg/dL (0.2-1); TOT PROT 6.5 g/dl (6.4-8.2)
[2023-05-23] MEDS ORDERED: PANTOPRAZOLE SODIUM 40 MG VIAL IVPUSH ONE (19:09)
[2023-05-23] MEDS ORDERED: PANTOPRAZOLE SODIUM 40 MG VIAL ONE (20:01)
[2023-05-24 08:11] LABS: POTASSIUM 4.2 mmol/L (3.5-5.1)
[2023-05-24 08:17] LABS: CALCIUM 8.1 mg/dL (8.5-10.1)
[2023-05-24 08:18] LABS: CREATININE 0.6 mg/dL (0.55-1.3)
[2023-05-24 08:20] LABS: BASO % 0.6 % (0-2.0); EOS % 3.8 % (0-4.5); HEMATOCRIT 23.8 % (35.4-49); HEMOGLOBIN 8.2 GM/dL (11.7-16.9); LYMPH % 16.1 % (8-40); MCH 34.2 pg (25.7-33.7); MCHC 34.6 g/dl (32.0-35.9); MEAN CELL VOLUME 98.6 fl (80-96); MEAN PLT VOLUME 8.2 fl (7.5-11.1); MONO % 13.4 % (3.8-10.2); NEUT % 66.1 % (42.8-82.8); PLATELET COUNT 207 10^3/uL (134-434); RBC 2.41 M/mm3 (4.00-5.60); RDW 19.6 % (11.9-15.9); WHITE BLOOD COUNT 5.1 K/mm3 (4.0-10.0)
[2023-05-24 09:45] VITALS: RESP 18
[2023-05-24] MEDS: ENALAPRIL MALEATE 2.5 MG TABLET PO SCH (09:54)
[2023-05-24] MEDS ORDERED: propRANOLol HCL 10 MG TABLET PO SCH ×2 (10:00)
[2023-05-24] MEDS ORDERED: LORazepam 1 MG TABLET PO PRN (11:22)
[2023-05-24] MEDS: GABAPENTIN 100 MG CAPSULE PO SCH (17:59)
[2023-05-24] MEDS: PANTOPRAZOLE SODIUM 40 MG VIAL IVPUSH SCH (21:36)
[2023-05-24] MEDS ORDERED: MELATONIN 1 MG TABLET PO SCH ×2 (22:00→22:30)
[2023-05-25] MEDS: PANTOPRAZOLE SODIUM 40 MG VIAL IVPUSH SCH (09:29)
[2023-05-25] MEDS: ENALAPRIL MALEATE 2.5 MG TABLET PO SCH (09:55)
[2023-05-25] MEDS: GABAPENTIN 100 MG CAPSULE PO SCH (09:57)
[2023-05-25] MEDS ORDERED: MULTIVIT-MINERALS ORAL LIQUID PO SCH (10:00)
[2023-05-25] MEDS ORDERED: THIAMINE HCL 200 MG/2 ML VIAL IVPB SCH (10:00)
[2023-05-25 11:15] LABS: BASO % 0.4 % (0-2.0); EOS % 1.7 % (0-4.5); HEMATOCRIT 26.3 % (35.4-49); HEMOGLOBIN 9.3 GM/dL (11.7-16.9); LYMPH % 9.4 % (8-40); MCH 34.5 pg (25.7-33.7); MCHC 35.2 g/dl (32.0-35.9); MEAN CELL VOLUME 98.2 fl (80-96); MONO % 13.6 % (3.8-10.2); NEUT % 74.9 % (42.8-82.8); PLATELET COUNT 217 10^3/uL (134-434); RBC 2.68 M/mm3 (4.00-5.60); RDW 19.5 % (11.9-15.9); WHITE BLOOD COUNT 8.6 K/mm3 (4.0-10.0)
[2023-05-25 11:19] VITALS: BP 111/73; PULSE 89; TEMP 97.7
[2023-05-25 11:21] LABS: POTASSIUM 3.8 mmol/L (3.5-5.1)
[2023-05-25 11:25] LABS: ALBUMIN 3.4 g/dl (3.4-5.0); CALCIUM 8.5 mg/dL (8.5-10.1)
[2023-05-25 11:27] LABS: BLOOD UREA NITROGEN 10.2 mg/dL (7-18)
[2023-05-25 11:29] LABS: CREATININE 0.9 mg/dL (0.55-1.3)
[2023-05-25 11:31] LABS: BILIRUBIN,TOTAL 0.3 mg/dL (0.2-1); TOT PROT 6.5 g/dl (6.4-8.2)
[2023-05-25] MEDS ORDERED: MELATONIN 1 MG TABLET PO SCH (22:00)
== END 2023-05-25 14:28 | disposition home or self-care (01) ==
LOC: JER 16:56 → JERBED 19:03 → J6S 05-24 10:35
PROVIDERS: ADMIT Internal Medicine; ATTEND Internal Medicine
PROC: 3E033GC Introduction of Other Therapeutic Substance into Peripheral Vein, Percutaneous Approach (ICD-10-PCS; principal; 2023-05-23)
DX: K92.2 Gastrointestinal hemorrhage, unspecified (principal); D64.9 Anemia, unspecified; F10.29 Alcohol dependence with unspecified alcohol-induced disorder; M19.90 Unspecified osteoarthritis, unspecified site; Z87.891 Personal history of nicotine dependence; I10 Essential (primary) hypertension
CPT/HCPCS: 36415; 36430; 71045-TC-FY; 80048; 80053; 82272; 82607; 85025; 85610; 85730; 86850; 86900; 86901; 86922; 96374; 96375; 96376; 99285-25; G0378; P9058

== ENCOUNTER 2024-05-21 09:36 | Emergency (ER) | payer MEDICARE, OTHER ==
[2024-05-21 09:54] VITALS: BP 141/73; PULSE 60; RESP 17; TEMP 97; BMI 22.0
[2024-05-21] MEDS ORDERED: LIDOCAINE 4% PATCH TP ONE (10:46)
[2024-05-21] MEDS ORDERED: ACETAMINOPHEN 325 MG TABLET (FP) ONE (10:46)
[2024-05-21] MEDS: ACETAMINOPHEN 500 MG TABLET (FP) PO ONE (10:48)
[2024-05-21] MEDS: LIDOCAINE 4% PATCH TP ONE (10:48)
[2024-05-21] MEDS ORDERED: LIDOCAINE PATCH REMOVAL MC SCH (22:00)
== END 2024-05-21 13:33 | disposition home or self-care (01) ==
LOC: JERFT 09:36
DX: M54.50 Low back pain, unspecified (principal); G89.29 Other chronic pain
CPT/HCPCS: 99283-25